=== PATIENT | female | born 1950 | race Caucasian/White ===

== ENCOUNTER 2023-11-06 15:36 | Inpatient (IN) | payer MEDICARE, SELFPAY ==
[2023-11-06] VITALS (14 sets, daily range): BP systolic 128–158; BP diastolic 60–73; PULSE 86–118; RESP 17–36; TEMP 36.2–36.9; O2SAT 95–99; BMI 28.3; BMI 30.2
--- NOTE | 2023-11-06 15:53 | DI.RAD.S_ITS ---
PROCEDURE: XR CHEST 1V INDICATIONS: suspected sepsis TECHNIQUE: One view of the chest was acquired. COMPARISON: None. FINDINGS: Surgical changes and devices: None. Lungs and pleura: Minimal left effusion. Mediastinum: Mediastinal contours appear normal. Heart size is enlarged. Bones and chest wall: No suspicious bony lesions. Overlying soft tissues appear unremarkable. IMPRESSION: Minimal left effusion. Dictated by: Merle Beltran M.D. on 11/06/2023 at 16:49 Approved by: Merle Beltran M.D. on 11/06/2023 at 16:49
[2023-11-06] MEDS: SODIUM CHLORIDE 0.9% 1,000 ML 1000 ML IV ×2 (16:00→16:42)
--- NOTE | 2023-11-06 16:09 | PC.NURSE ---
patient has been having diarrhea for a week. She has had 3-4 rounds of nausea vomiting. She tried to take immodium AD 2-3 days ago and states that it did not help. She states that she has been having chills and felt feverish but has not taken a measurement of temp at home. She states that she has lower abd tenderness from straining.
[2023-11-06 16:14] LABS: Add Manual Diff / Slide Review NO; Basophils Absolute Auto 0 /uL (0-100); Basophils Percent Auto 0.3 % (0-2); Eosinophils Absolute Auto 0 /uL (0-450); Eosinophils Percent Auto 0.5 % (2-4); Hematocrit 42.1 % (36-46); Hemoglobin 14.5 g/dL (12.0-16.0); Lymphocytes Absolute Auto 1000 /uL (1100-4500); Lymphocytes Percent Auto 11.8 % (25-40); Mean Corpuscular HGB Conc 34.5 % (30-36); Mean Corpuscular Volume 89.8 fL (80-100); Monocytes Absolute Auto 1000 /uL (0-900); Monocytes Percent Auto 12.1 % (3-14); Neutrophils Absolute Auto 6100 /uL (1500-7000); Neutrophils Percent Auto 75.3 % (50-75); Platelet Count 319 X10^3/uL (150-400); Red Blood Cell Count 4.69 X10^6/uL (4.0-5.2); Red Cell Distribution Width 13.9 % (11.6-14.8); White Blood Cell Count 8.1 X10^3/uL (4.5-11.0)
--- NOTE | 2023-11-06 16:34 | DI.CT.S_ITS ---
PROCEDURE: CT ABDOMEN PELVIS W CON INDICATIONS: nv/diarrhea/LLQ x 1 week, tachy TECHNIQUE: After the administration of intravenous contrast, axial sections acquired from the lung bases to the pubic symphysis. Coronal and sagittal reformats were performed. For radiation dose reduction, the following was used: automated exposure control, adjustment of mA and/or kV according to patient size. COMPARISON: None. FINDINGS: Image quality: Portions of the lower pelvis are suboptimally evaluated secondary to metallic streak artifact from hip arthroplasty. Lower Chest: Linear left basilar opacities likely atelectasis. ABDOMEN: Liver: No solid mass. Mild steatosis. Gallbladder: No radiopaque gallstones or wall thickening. Biliary ducts: No biliary dilation. Pancreas: No ductal dilation. Spleen: Size is within normal limits. Adrenal Glands: No adrenal nodules. Kidneys and Ureters: No hydronephrosis. No solid mass. No complex renal cystic lesion which requires follow up. Simple left renal cyst. Stomach and Bowel: No obstruction. Colonic diverticula are present within the colon particularly the left colon. There is prominent thickening of the distal descending as well as sigmoid colon with pericolonic inflammatory change. Peritoneum: No abnormal intraperitoneal fluid. No free air. Ventral Wall: No significant ventral hernia. Abdominal Nodes: No retroperitoneal or mesenteric adenopathy by size criteria. Vessels: Aorta and inferior vena cava are normal in size. PELVIS: Pelvic Organs: Unremarkable. Bladder: No bladder wall thickening, accounting for underdistention. Pelvic Nodes: No enlarged lymph nodes. Miscellaneous: No inguinal hernias are seen. Bones: No aggressive osseous abnormality. Right hip arthroplasty. IMPRESSION: Left colonic thickening with inflammatory change most consistent with colitis secondary to diverticulitis. No associated abscess. Dictated by: Merle Beltran M.D. on 11/06/2023 at 17:01 Approved by: Merle Beltran M.D. on 11/06/2023 at 17:02
[2023-11-06 16:35] LABS: INR 1.2 (0.9-1.3); Prothrombin Time 13.8 SECONDS (9.4-12.5)
[2023-11-06 16:38] LABS: PTT Partial Thromboplastin Tim 33 SECONDS (25.1-36.5)
[2023-11-06 16:39] LABS: Lactate (Lactic Acid) 2.1 mmol/L (0.7-2.1)
[2023-11-06 16:41] LABS: Alanine Aminotransferase 17 IU/L (<35); Albumin 4.1 g/dL (3.5-5.0); Albumin Globulin Ratio 1.2 (1.0-2.8); Alkaline Phosphatase 75 U/L (38-126); Aspartate Aminotransferase 20 IU/L (14-36); BUN Creatinine Ratio 14.5 (6-22); Bilirubin Total 0.8 mg/dL (0.2-1.3); Blood Urea Nitrogen 11 mg/dL (7-17); Carbon Dioxide 27 mmol/L (22-32); Chloride 95 mmol/L (98-107); Estimated Glomerular Filt Rate > 60 mL/min (>60); Globulin 3.4 g/dL (1.7-4.1); Glucose 170 mg/dL (80-110); HEMOLYSIS < 15 (0-50); Lipase 55 U/L (23-300); Sodium 131 mmol/L (137-145); Total Protein 7.5 g/dL (6.3-8.2)
--- NOTE | 2023-11-06 16:41 | ED.GENADULT ---
HPI - General Adult General Chief complaint: Weakness Stated complaint: nausea, vomiting, diarrhea x 1 week Time Seen by Provider: 11/06/23 16:00 Source: patient, family and RN notes reviewed Mode of arrival: Wheelchair Limitations: no limitations History of Present Illness HPI narrative: 73-year-old female history of dyslipidemia who presents with complaint of frequent diarrhea since last sometimes large amounts no black or blood but frequently throughout the day without any improvement over the past week. She has had some occasional nausea and vomiting. She also describes some abdominal pain. No back or flank pain. She describes some mild fevers. Denies any chest pain or shortness of breath. No syncope. She states no new dysuria urgency or frequency. She has been taking occasional oral hydration and fluids but has had a decreased appetite and had minimal intake. She denies any significant swelling in her lower extremities. She states home medications include pravastatin and Celexa. She has had multiple orthopedic surgeries including back surgery, hip replacement, knee replacement thumb replacement x2 and a dental implant that was removed for infection in the last couple of months. She has had a tubal ligation in the past. No known drug allergies. No tobacco, no regular alcohol, no recreational drugs. Patient lives in [place] and is visiting family in the area. She is accompanied by spouse. Related Data Allergies Allergy/AdvReac Type Severity Reaction Status Date / Time No Known Drug Allergies Allergy Verified 11/06/23 15:51 Review of Systems Review of Systems ROS Unobtainable: All systems reviewed & are unremarkable except as noted in HPI and below Patient History Social History Smoking Status: Never smoker Smoking Status: Never smoker Substance Use Type: does not use Exam Narrative Exam Narrative: GEN: well nourished, female, alert and oriented x 3, patient appears to be in moderate distress. HEENT: Atraumatic, pupils are equal round reactive to light, extraocular movements are intact, nares are clear, there is no conjunctival pallor. Throat is clear without any exudates, erythema, tonsillar enlargement or uvular deviation HEART: Tachycardic but regular rate and rhythm without murmur, clicks, rubs. Pulses are equal in upper and lower extremities LUNGS:Lungs clear to auscultation, no wheezes, rales, crackles, chest moves symmetrically, no tachypnea accessory muscle use. ABD:bowel sounds decreased, soft, generalized tenderness. Patient is slightly distended. No guarding, rebound, rigidity, no masses noted, no hepatosplenomegaly :No CVA tenderness MSCL: Non-tender, no muscle atrophy, muscles strength 5/5 upper and lower extremities, full range of motion. NEURO:CN 2-12 intact, sensation normal. SKIN: No rash, erythema or other skin changes noted. Initial Vital Signs Initial Vital Signs: Vital Signs Pulse Oximetry 97 11/06/23 15:43 Course Orders Ordered: ED Orders 11/06/23 15:53 XR chest 1V Stat EKG-12 Lead Stat RT Consult Eval and Treat NOW 11/06/23 16:04 Complete Blood Count AUTO DIFF Stat Comprehensive Metabolic Panel Stat Lactate (Lactic Acid) Stat Lipase Stat PTT Partial Thromboplastin Joey Stat Procalcitonin Stat Prothrombin Time INR Stat 11/06/23 16:34 CT abdomen pelvis w con Stat 11/06/23 17:32 Urine Culture Stat Urine Microscopic Stat 11/06/23 18:30 Blood Culture Stat 11/06/23 18:57 GI Panel (Film Array) Stat Ciprofloxacin (Cipro) 400 mg in 200 mls @ 200 mls/hr IV NOW ONE Stop: 11/06/23 19:48 Last Admin: 11/06/23 18:59 Dose: 200 mls/hr Documented By: LISSET Metronidazole (Flagyl) 500 mg in 100 mls @ 100 mls/hr IV NOW ONE Stop: 11/06/23 19:48 Sodium Chloride (Normal Saline 0.9%) 1,000 mls @ 150 mls/hr IV CONT YOSEPH Last Admin: 11/06/23 19:14 Dose: 150 mls/hr Documented By: LISSET Discontinued Medications Sodium Chloride (Normal Saline 0.9%) 1,000 mls @ 1,000 mls/hr IV BOLUS ONE Stop: 11/06/23 16:52 Last Infusion: 11/06/23 16:41 Dose: Infused Documented By: Admin: 11/06/23 16:00 Dose: 1,000 mls/hr Documented By: JOYCELYN Acetaminophen (Ofirmev) 1,000 mg in 100 mls @ 400 mls/hr IV NOW ONE Stop: 11/06/23 16:48 Last Infusion: 11/06/23 17:49 Dose: Infused Documented By: Admin: 11/06/23 16:54 Dose: 400 mls/hr Documented By: LISSET Sodium Chloride (Normal Saline 0.9%) 1,000 mls @ 1,000 mls/hr IV BOLUS ONE Stop: 11/06/23 17:34 Last Infusion: 11/06/23 18:20 Dose: Infused Documented By: Admin: 11/06/23 16:42 Dose: 1,000 mls/hr Documented By: JOYCELYN Ondansetron HCl (Ondansetron 4 Mg/2 Ml Inj) 4 mg IV NOW PRN PRN Reason: Nausea And Vomiting Ondansetron HCl (Ondansetron 4 Mg Odt) 4 mg SL NOW PRN PRN Reason: Nausea And Vomiting Potassium Chloride (Potassium Chloride 20 Meq Tab) 40 meq PO NOW ONE Stop: 11/06/23 17:24 Last Admin: 11/06/23 17:34 Dose: 40 meq Documented By: LISSET Vital Signs Vital signs: Vital Signs - 8 hr 11/06/23 15:43 11/06/23 15:44 11/06/23 15:44 Temperature Pulse Rate 117 H Respiratory Rate Blood Pressure 158/72 H Pulse Oximetry 97 98 Oxygen Delivery Method 11/06/23 15:46 11/06/23 16:00 11/06/23 16:09 Temperature 98.5 F Pulse Rate 118 H 114 H Respiratory Rate 25 H 22 Blood Pressure 158/72 H 157/60 H Pulse Oximetry 98 96 Oxygen Delivery Method Room Air 11/06/23 16:09 11/06/23 16:30 11/06/23 16:39 Temperature Pulse Rate 109 H 110 H Respiratory Rate 18 33 H Blood Pressure 132/62 Pulse Oximetry 98 Oxygen Delivery Method Room Air 11/06/23 16:39 11/06/23 17:16 11/06/23 17:18 Temperature Pulse Rate 109 H 104 H 104 H Respiratory Rate 25 H 26 H 22 Blood Pressure Pulse Oximetry 99 97 98 Oxygen Delivery Method 11/06/23 17:18 11/06/23 17:30 11/06/23 17:30 Temperature Pulse Rate 102 H Respiratory Rate 20 Blood Pressure 152/65 H 137/62 Pulse Oximetry 98 Oxygen Delivery Method 11/06/23 18:00 11/06/23 18:00 11/06/23 18:30 Temperature Pulse Rate 96 H 103 H Respiratory Rate 17 36 H Blood Pressure 131/60 Pulse Oximetry 96 95 Oxygen Delivery Method 11/06/23 18:31 11/06/23 18:31 Temperature Pulse Rate 105 H Respiratory Rate 32 H Blood Pressure 128/73 Pulse Oximetry 96 Oxygen Delivery Method Medical Decision Making Lab Data 11/06/23 16:04 11/06/23 16:04 Labs: Lab Results 11/06/23 11/06/23 11/06/23 Range/Units 16:04 17:32 18:30 WBC 8.1 (4.5-11.0) X10^3/uL RBC 4.69 (4.0-5.2) X10^6/uL Hgb 14.5 (12.0-16.0) g/dL Hct 42.1 (36-46) % MCV 89.8 (80-100) fL MCH 31.0 (26-34) PG MCHC 34.5 (30-36) % RDW 13.9 (11.6-14.8) % Plt Count 319 (150-400) X10^3/uL Neut % (Auto) 75.3 H (50-75) % Lymph % (Auto) 11.8 L (25-40) % Patrick % (Auto) 12.1 (3-14) % Eos % (Auto) 0.5 L (2-4) % Baso % (Auto) 0.3 (0-2) % Neut # (Auto) 6100 (9326-4006) /uL Lymph # (Auto) 1000 L (7696-0517) /uL Patrick # (Auto) 1000 H (0-900) /uL Eos # (Auto) 0 (0-450) /uL Baso # (Auto) 0 (0-100) /uL PT 13.8 H (9.4-12.5) SECONDS INR 1.2 (0.9-1.3) APTT 33 (25.1-36.5) SECONDS Sodium 131 L (137-145) mmol/L Potassium 3.0 L (3.4-5.1) mmol/L Chloride 95 L (98-107) mmol/L Carbon Dioxide 27 (22-32) mmol/L BUN 11 (7-17) mg/dL Creatinine 0.76 (0.52-1.04) mg/dL Estimated GFR > 60 (>60) mL/min BUN/Creatinine Ratio 14.5 (6-22) Glucose 170 H (80-110) mg/dL Lactate 2.1 1.2 (0.7-2.1) mmol/L Calcium 9.0 (8.4-10.2) mg/dL Total Bilirubin 0.8 (0.2-1.3) mg/dL AST 20 (14-36) IU/L ALT 17 (<35) IU/L Alkaline Phosphatase 75 (38-126) U/L Total Protein 7.5 (6.3-8.2) g/dL Albumin 4.1 (3.5-5.0) g/dL Globulin 3.4 (1.7-4.1) g/dL Albumin/Globulin Ratio 1.2 (1.0-2.8) Lipase 55 (23-300) U/L Procalcitonin 0.27 (<0.5) ng/mL Urine RBC 5-10/hpf H (0-5/HPF) Urine WBC 10-30/hpf H (0-5/HPF) Ur Squamous Epith Cells 1-5 /hpf (0-5/HPF) Ur Renal Epithelial Cell 1-5/hpf H (0-1/HPF) Urine Bacteria Moderate (10-30) H (None) Ur Culture Indicated? Specimen cultured Vol Urine Centrifuged 10ml (spun) Urine Dip Bedside Urine Glucose Negative Bedside Urine Bilirubin - Negative Bedside Urine Ketone - Negative Urine Specific [place] 1.005 Bedside Urine Occult Blood ++ Bedside Urine pH 6.0 Bedside Urine Protein - Negative Bedside Urine Urobilinogen - Negative Bedside Urine Nitrite - Negative Bedside Urine Leukocytes ++ 125 Esterase Point of care testing: Urine Dip Bedside Urine Glucose Negative Bedside Urine Bilirubin - Negative Bedside Urine Ketone - Negative Urine Specific [place] 1.005 Bedside Urine Occult Blood ++ Bedside Urine pH 6.0 Bedside Urine Protein - Negative Bedside Urine Urobilinogen - Negative Bedside Urine Nitrite - Negative Bedside Urine Leukocytes ++ 125 Esterase ECG Data Attestation: I personally reviewed and interpreted this ECG as follows: Interpretation: Sinus tachycardia frequent PVCs. Rate of 113 SC 118 QRS is a 78 [address]TC [address] No acute ST elevation depression noted. MDM Narrative Medical decision making narrative: 73-year-old female with history of dyslipidemia on pravastatin and Celexa as her only daily medications has had a week of frequent diarrhea with large amounts of fluids, nausea vomiting decreased appetite. No black or bloody stools but generalized abdominal pain she appears slightly distended bowel signs are decreased. Patient presents tachycardic afebrile room air is 97% heart rate blood pressure slightly elevated. Patient was given fluids, Zofran and Tylenol she prefers non narcotic pain medication. Labs white count 8.1 hemoglobin of 14 platelets of 319 predominance of neutrophils. INR is 1.2 sodium is 131 potassium 3 chloride 95 with a CO2 of 27 BUN 11 creatinine 0.76, glucose of 170. Lactate 2.1 calcium 9 with a negative LFTs, lipase is 55. Procalcitonin 0.27. Urine, positive for blood specific gravity is 1.005, negative for nitrates positive for leukocyte esterase. Patient has 5-10 RBCs 10-30 WBCs 1-5 squamous 1-5 renal epithelial cells, moderate bacteria was sent for culture. Patient also has blood cultures pending. EKG shows sinus tach but frequent PVCs Chest x-ray shows minimal left occlusion. CT abdomen pelvis-left colonic wall thickening with inflammatory change most consistent with colitis secondary to diverticulitis. No associated abscess. Patient's heart rate has improved but not resolved after 2 L of fluid she is still slightly tachy cardiac, no hypotension she is still slightly tachypneic. Reviewed patient's findings she is continued to have some stool output and has very brown liquidy stool in large amount here in the department. Patient was started on Flagyl and Cipro for diverticulitis after potential source. Antibiotic choice was delayed while evaluating for source of She did tolerate oral potassium but concerned about patient's likely fluid deficits difficulty keeping up with these with recurrent diarrhea, electrolyte abnormalities, sepsis and would like to keep for observation. GI panel is pending. Spoke with Dr. Siddiqi, hospitalist: Accepts at this time we will be inpatient for IV antibiotics and fluids. Discharge Plan Departure Patient Disposition: Admitted As Inpatient Clinical Impression: Diverticulitis, Renal cyst, Hypokalemia, Hyponatremia, Sepsis Admit Date/Time: 11/06/23 19:17 Admit Provider: German King
[2023-11-06] MEDS: ACETAMINOPHEN IV 1,000 MG/100 ML VIAL 400 MG IV (16:54)
[2023-11-06 16:57] LABS: Procalcitonin 0.27 ng/mL (<0.5)
[2023-11-06] MEDS: POTASSIUM CHLORIDE 20 MEQ TAB 40 MEQ PO (17:34)
[2023-11-06 17:46] LABS: Reflexed Lactate in 2 Hours Y
[2023-11-06 18:36] LABS: Urine Volume 10mL (spun)
[2023-11-06 18:37] LABS: Bacteria Urine Moderate (10-30); Culture Indicated Urine Specimen Cultured; RBC Urine 5-10/HPF (0-5/HPF); Renal Epithelial Cells Urine 1-5/HPF (0-1/HPF); Squamous Epithelial Cell Urine 1-5 /HPF (0-5/HPF); WBC Urine 10-30/HPF (0-5/HPF)
[2023-11-06 18:53] LABS: Lactate 2HR (Lactic Acid Rflx) 1.2 mmol/L (0.7-2.1)
[2023-11-06] MEDS: CIPROFLOXACIN 400 MG/200 ML PIGGYBACK 200 MG IV (18:59)
[2023-11-06] MEDS: SODIUM CHLORIDE 0.9% 1,000 ML 150 ML IV (19:14)
--- NOTE | 2023-11-06 19:34 | P.HP_ITS ---
History of Present Illness History of Present Illness Date Patient Seen: 11/06/23 Time Patient Seen: 21:00 Chief complaint: nausea, vomiting, diarrhea x 1 week Narrative: 73 y/o with PMH of HLD, depression, degenerative disease of lumbar spine, presented with diarrhea, fever, nausea, vomiting. Symptoms started a week ago and worsened on a day of admission. She recently finished a course of abx for dental infection and was having a yogurt daily. CT abdomen in the ED showing diverticulosis of entire descending colon in addition to colitis. She is aware of diverticulosis since her recent colonoscopy. Diagnosed with C difficile colitis. [facility] Medical History (Updated 11/07/23 @ 06:20 by German Siddiqi MD) Depression HLD (hyperlipidemia) Social History household members: spouse Smoking Status: Never smoker alcohol intake: never Meds Home Medications and Allergies Home Medications Medication Instructions Recorded Confirmed Type citalopram 20 mg tablet 20 mg PO BEDTIME 11/06/23 11/06/23 History pravastatin 40 mg tablet 40 mg PO BEDTIME 11/06/23 11/06/23 History Allergies Allergy/AdvReac Type Severity Reaction Status Date / Time No Known Drug Allergies Allergy Verified 11/06/23 15:51 Review of Systems Constitutional Comments: generalized weakness, fever Cardiovascular Comments: w/o chest pain Respiratory Comments: w/o shortness of breath Gastrointestinal Comments: decreased PO intake, nausea, few episodes of vomiting, numerous liquid stools Genitourinary Comments: w/o dysuria Exam Vital Signs (past 8 hours): - 11/06/23 15:43 11/06/23 15:44 11/06/23 15:44 Temperature Pulse Rate 117 H Respiratory Rate Blood Pressure 158/72 H Pulse Oximetry 97 98 Oxygen Delivery Method 11/06/23 15:46 11/06/23 16:00 11/06/23 16:09 Temperature 98.5 F Pulse Rate 118 H 114 H Respiratory Rate 25 H 22 Blood Pressure 158/72 H 157/60 H Pulse Oximetry 98 96 Oxygen Delivery Method Room Air 11/06/23 16:09 11/06/23 16:30 11/06/23 16:39 Temperature Pulse Rate 109 H 110 H Respiratory Rate 18 33 H Blood Pressure 132/62 Pulse Oximetry 98 Oxygen Delivery Method Room Air 11/06/23 16:39 11/06/23 17:16 11/06/23 17:18 Temperature Pulse Rate 109 H 104 H 104 H Respiratory Rate 25 H 26 H 22 Blood Pressure Pulse Oximetry 99 97 98 Oxygen Delivery Method 11/06/23 17:18 11/06/23 17:30 11/06/23 17:30 Temperature Pulse Rate 102 H Respiratory Rate 20 Blood Pressure 152/65 H 137/62 Pulse Oximetry 98 Oxygen Delivery Method 11/06/23 18:00 11/06/23 18:00 11/06/23 18:30 Temperature Pulse Rate 96 H 103 H Respiratory Rate 17 36 H Blood Pressure 131/60 Pulse Oximetry 96 95 Oxygen Delivery Method 11/06/23 18:31 11/06/23 18:31 Temperature Pulse Rate 105 H Respiratory Rate 32 H Blood Pressure 128/73 Pulse Oximetry 96 Oxygen Delivery Method Oxygen Delivery Method Room Air Const Other: in no distress, laying in bed Resp Other: normal respiratory effort Cardio Other: RRR Skin Other: w/o rashes Psych Other: lucid Objective Labs 11/07/23 04:30 11/07/23 04:30 Labs: Laboratory Results - last 24 hr 11/06/23 11/06/23 11/06/23 16:04 17:32 18:30 WBC 8.1 RBC 4.69 Hgb 14.5 Hct 42.1 MCV 89.8 MCH 31.0 MCHC 34.5 RDW 13.9 Plt Count 319 Neut % (Auto) 75.3 H Lymph % (Auto) 11.8 L [place] % (Auto) 12.1 Eos % (Auto) 0.5 L Baso % (Auto) 0.3 Neut # (Auto) 6100 Lymph # (Auto) 1000 L [place] # (Auto) 1000 H Eos # (Auto) 0 Baso # (Auto) 0 PT 13.8 H INR 1.2 APTT 33 Sodium 131 L Potassium 3.0 L Chloride 95 L Carbon Dioxide 27 BUN 11 Creatinine 0.76 Estimated GFR > 60 BUN/Creatinine Ratio 14.5 Glucose 170 H Lactate 2.1 1.2 Calcium 9.0 Total Bilirubin 0.8 AST 20 ALT 17 Alkaline Phosphatase 75 Total Protein 7.5 Albumin 4.1 Globulin 3.4 Albumin/Globulin Ratio 1.2 Lipase 55 Procalcitonin 0.27 Urine RBC 5-10/hpf H Urine WBC 10-30/hpf H Ur Squamous Epith Cells 1-5 /hpf Ur Renal Epithelial Cell 1-5/hpf H Urine Bacteria Moderate (10-30) H Ur Culture Indicated? Specimen cultured Vol Urine Centrifuged 10ml (spun) Assessment & Plan Assessment and plan (1) C. difficile colitis: Status: Acute (2) HLD (hyperlipidemia): Status: Acute (3) Depression: Status: Acute Assessment & Plan narrative: Clostridium Difficile Colitis - recent use of abx - Vancomycin PO, can tolerate PO, clear liquid diet - IVFs Hypokalemia / Hyponatremia - supplemented - GI loses, monitored BMP HLD - statin Depression - Celexa DVT prophylaxis - SCDs
[2023-11-06] MEDS: metroNIDAZOLE 500 MG/100 ML PIGGYBACK 100 MG IV (20:11)
[2023-11-06 20:19] LABS: Adenovirus F 40/41 Not Detected (Not Detect); Astrovirus Not Detected (Not Detect); Campylobacter Not Detected (Not Detect); Clostridium difficile toxin AB Detected (Not Detect); Cryptosporidium Not Detected (Not Detect); Cyclospora cayetanensis Not Detected (Not Detect); Entamoeba histolytica Not Detected (Not Detect); Enteroaggregative E.coli Not Detected (Not Detect); Enteropathogenic E.coli Not Detected (Not Detect); Enterotoxigenic E.coli It/st Not Detected (Not Detect); Giardia lamblia Not Detected (Not Detect); Norovirus GI/GII Not Detected (Not Detect); Plesiomonsa shigelloides Not Detected (Not Detect); Rotavirus A Not Detected (Not Detect); Salmonella Not Detected (Not Detect); Sapovirus Not Detected (Not Detect); Shiga-like toxin-prod E.coli Not Detected (Not Detect); Shigella/Enteroinvasive E.coli Not Detected (Not Detect); Vibrio Not Detected (Not Detect); Vibrio cholerae Not Detected (Not Detect); Yersinia enterocolitica Not Detected (Not Detect)
[2023-11-06] MEDS: DEXTROSE 5%-0.45NS W/KCL 20MEQ 1,000 ML 125 MEQ IV (21:00)
[2023-11-06] MEDS: VANCOMYCIN 125 MG CAPSULE PO (21:54)
[2023-11-07] VITALS: BP 147/75; PULSE 95; RESP 17; TEMP 36.5; O2SAT 97
[2023-11-07] MEDS: HYDROMORPHONE 0.5 MG INJ IV ×4 (00:36→18:51)
--- NOTE | 2023-11-07 01:46 | PC.ADMIT ---
[address] Admission Note: Patient admitted to AC unit from ED @ 20:45, spouse present. Alert and oriented x 4, pleasant. Ambulating with SBA, FWW. Placed on Enteric precautions for C-diff. Reports lower abdominal cramping. D5 1/2 NS running at 125/hr. Oriented to room and call light, bed in low, locked position and call light in reach. The patient,Shoshana Tariq,73 y/o, was given written information regarding hospital policies, unit procedures and contact persons. Patient's smoking status: Never smoker. Vital Signs - 8 hr 11/06/23 18:00 11/06/23 18:00 11/06/23 18:30 Temperature Pulse Rate 96 H 103 H Respiratory Rate 17 36 H Blood Pressure 131/60 Pulse Oximetry 96 95 Oxygen Delivery Method Oxygen Flow Rate 11/06/23 18:31 11/06/23 18:31 11/06/23 19:41 Temperature Pulse Rate 105 H Respiratory Rate 32 H Blood Pressure 128/73 Pulse Oximetry 96 Oxygen Delivery Method Room Air Oxygen Flow Rate 11/06/23 20:45 11/07/23 00:00 Temperature 97.1 F L 97.7 F Pulse Rate 86 95 H Respiratory Rate 18 17 Blood Pressure 150/60 H 147/75 H Pulse Oximetry 97 97 Oxygen Delivery Method Oxygen Flow Rate 0 0
[2023-11-07] MEDS: VANCOMYCIN 125 MG CAPSULE PO ×4 (03:45→20:55)
[2023-11-07 04:00] VITALS: BP 128/48; PULSE 98; RESP 18; TEMP 36.4; O2SAT 98
[2023-11-07 05:20] LABS: Add Manual Diff / Slide Review NO; Basophils Absolute Auto 0 /uL (0-100); Basophils Percent Auto 0.3 % (0-2); Eosinophils Absolute Auto 100 /uL (0-450); Eosinophils Percent Auto 1.5 % (2-4); Hematocrit 38.5 % (36-46); Lymphocytes Absolute Auto 1000 /uL (1100-4500); Lymphocytes Percent Auto 13.7 % (25-40); Mean Corpuscular HGB Conc 33.8 % (30-36); Mean Corpuscular Hemoglobin 30.7 PG (26-34); Mean Corpuscular Volume 90.9 fL (80-100); Monocytes Absolute Auto 1100 /uL (0-900); Neutrophils Absolute Auto 5200 /uL (1500-7000); Neutrophils Percent Auto 69.5 % (50-75); Platelet Count 244 X10^3/uL (150-400); Red Blood Cell Count 4.24 X10^6/uL (4.0-5.2); White Blood Cell Count 7.4 X10^3/uL (4.5-11.0)
[2023-11-07 05:30] LABS: BUN Creatinine Ratio 10.9 (6-22); Blood Urea Nitrogen 6 mg/dL (7-17); Calcium 8.1 mg/dL (8.4-10.2); Carbon Dioxide 23 mmol/L (22-32); Chloride 105 mmol/L (98-107); Estimated Glomerular Filt Rate > 60 mL/min (>60); Glucose 107 mg/dL (80-110); HEMOLYSIS < 15 (0-50); Magnesium 2.2 mg/dL (1.6-2.3); Sodium 136 mmol/L (137-145)
[2023-11-07] MEDS: DEXTROSE 5%-0.45NS W/KCL 20MEQ 1,000 ML 125 MEQ IV ×3 (05:37→23:52)
[2023-11-07 08:00] VITALS: BP 149/67; PULSE 102; RESP 16; TEMP 36.5; O2SAT 99
[2023-11-07 08:37] LABS: Uric Acid 4.5 mg/dL (2.5-6.2)
[2023-11-07] MEDS: IBUPROFEN 400 MG TABLET 800 MG PO (09:28)
[2023-11-07 12:00] VITALS: BP 124/56; PULSE 99; RESP 16; TEMP 36.1; O2SAT 98
--- NOTE | 2023-11-07 13:09 | CM.DANOTE ---
Patient is a 73 yo female who was admitted INPT status on 11/06/23 for Diarrhea. Pt has [facility] and [facility] for insurance and her PCP is out of town. EMR was reviewed. Per MD, pt admitted with diverticulosis and CDiff+ and getting fluids and IV-Abx and likely not stable for discharge yet today. SW met bedside with pt and explained role and she confirms that her permanent home is in [place] where her PCP resides as well and they have been staying in [place] for a few months at a time at their local son's house as he has a mother inlaw apartment attached to their home so that pt and her spouse can assist with the grandkids. Pt is quite active and independent at baseline, does not use DME for ambulation, and still drives and cares for the grandkids and denies any hx of HH or SNF. Pt states her spouse is also active and independent and can assist as needed and their son is a local Physician. Pt confirms she is below baseline due to fatigue and arthritis flare from the CDiff but has ambulated with FWW in room independently and anticipates no discharge needs when stable. SW discussed HH services and frequency and pt does not anticipate a need for HH closer to discharge. Plan: SW to follow closely for plan of discharge home with family when medically stable and any further identified discharge planning needs. LILI Le Discharge Planning/Care Management CM Discharge Assessment Start: 11/07/23 13:03 Freq: Status: Active Protocol: Document 11/07/23 13:03 BF (Rec: 11/07/23 13:09 BF [id number]) Discharge Planning Assessment Assigned Delivery Associate LILI Adams DPOA/Assigned Designee Name jos Byers Contact Information [phone] Advance Directives? No Advance Directives on File No History Provided By Patient,Medical Record Has Patient been admitted in last 30 No days? Prior Living Arrangements House Household Members spouse,family Type of transporation used prior to Drives own vehicle admit Independent with ADL's Yes Is patient alert and oriented? Yes Caregiver for Another Yes: helping with childcare for grandchildren Barriers to Discharge No Discharge Plan Home Transportation Arrangement Likely spouse but son available too Referrals Initiated None needed Whiteboard Updated in Patient Room with Yes name and ext. # of Delivery Associate Review Status In Process Please Provide Date Initial DC 11/07/23 Assessment Was Performed Next Review Type Continued Stay Review
--- NOTE | 2023-11-07 13:28 | DIET.CONS ---
Dietary Consultation Note Admission Date: 11/06/2023 19:17 Assessment: 73 y F admitted for C difficile colitis. Nutrition screened for pt on low fiber diet. Met with pt at bedside. Pt reports taking antibiotic and having Activia yogurts with it for promotion of gut health. Also reports as a result of colonoscopy results showing diverticulosis, she had been increasing fiber in diet. Cooks for herself. Reports feeling mild weight loss, associated with water loss from diarrhea and decreased po intake with minimal intake over last week d/t to nausea, vomiting, and diarrhea. Normal appetite/intake before this past week. Ht: 157.48 cm Wt: 75 kg BMI: 30.2 UBW: 72.7-75 kg per pt report, no weight loss noted Last BM: 11/07/23 (11/07/23 06:00) MNA: 14 Bill Score: 20 Diet: 11/07/23 Breakfast Soft,Low Fiber (Low residue) Diet Diet Modifications: Food Texture: Level 7 - Regular Liquid Consistency: Level 0 - Thin Nutrition Percent Meal Consumed 25% 11/07/23 12:00 Percent Meal Consumed 50% 11/07/23 11:00 Labs: RBC 4.24 X10^6/uL (4.0-5.2) 11/07/23 04:30 Hgb 13.0 g/dL (12.0-16.0) 11/07/23 04:30 Hct 38.5 % (36-46) 11/07/23 04:30 Creatinine 0.55 mg/dL (0.52-1.04) 11/07/23 04:30 Lactate 1.2 mmol/L (0.7-2.1) 11/06/23 18:30 Nutrition Diagnosis: Inadequate oral intake r/t to decreased appetite in setting of GI distress aeb <75% of EER for 7 days Interventions: 1. MNT for diverticulosis and current diet order/symptoms provided - when having no s/s, slow reintroduction of fiber into diet 2. Protein supplementation 1x/day EER: [id number] kcals (20-22 kcals per BMI, compared w/ MSJ at 1.25) 65-75 g protein (1-1.1 g/kg of adjusted IBW) Monitoring/Evaluations: po intakes Electronically Signed by: Josi Hernandez 11/07/23 13:[address] [id number]
--- NOTE | 2023-11-07 14:04 | DI.RAD.S_ITS ---
PROCEDURE: XR FOOT LT MIN 3V INDICATIONS: pain to foot, can't weightbear TECHNIQUE: 3 views of the foot were acquired. COMPARISON: None. FINDINGS: Bones: No fractures or dislocations. Note is made of moderate osteoarthritis at the 1st MTP joint and also at the base of the 2nd and 3rd metatarsal bones No suspicious bony lesions. Soft tissues: No tibiotalar joint effusion. Achilles tendon appears normal. IMPRESSION: No acute bony abnormality. Degenerative osteoarthritis as discussed. Dictated by: Remigio Morgan M.D. on 11/07/2023 at 14:38 Approved by: Remigio Morgan M.D. on 11/07/2023 at 14:39
[2023-11-07 16:00] VITALS: BP 134/67; PULSE 98; RESP 16; TEMP 36.2; O2SAT 99
--- NOTE | 2023-11-07 18:20 | P.PN_ITS ---
Subjective Subjective Interval history: Patient's diarrhea much improved today including abd pain. Had only 2 watery BM's. I explained she likely doesn't have diverticulitis, but instead C. diff colitis which gave that appearance on CT. at bedside and questions were answered. Exam Vital Signs (past 8 hours): - 11/07/23 12:00 11/07/23 16:00 Temperature 97.0 F L 97.1 F L Pulse Rate 99 H 98 H Respiratory Rate 16 16 Blood Pressure 124/56 L 134/67 Pulse Oximetry 98 99 Oxygen Delivery Method Room Air Oxygen Flow Rate 0 Const Other: in no distress, laying in bed Resp Other: normal respiratory effort Cardio Other: RRR GI Other: mild lower quadrant tenderness, much improved Skin Other: w/o rashes Psych Other: lucid Objective Labs 11/07/23 04:30 11/07/23 04:30 Labs: Laboratory Results - last 24 hr 11/06/23 11/06/23 11/06/23 17:32 18:30 18:57 WBC RBC Hgb Hct MCV MCH MCHC RDW Plt Count Neut % (Auto) Lymph % (Auto) [place] % (Auto) Eos % (Auto) Baso % (Auto) Neut # (Auto) Lymph # (Auto) [place] # (Auto) Eos # (Auto) Baso # (Auto) Sodium Potassium Chloride Carbon Dioxide BUN Creatinine Estimated GFR BUN/Creatinine Ratio Glucose Lactate 1.2 Uric Acid Calcium Magnesium Urine RBC 5-10/hpf H Urine WBC 10-30/hpf H Ur Squamous Epith Cells 1-5 /hpf Ur Renal Epithelial Cell 1-5/hpf H Urine Bacteria Moderate (10-30) H Ur Culture Indicated? Specimen cultured Vol Urine Centrifuged 10ml (spun) Stl C. cayetanensis PCR Not detected Stool Rotavirus (PCR) Not detected Stool Adenovirus (PCR) Not detected Stool Astrovirus (PCR) Not detected Stool Cryptosporidium PCR Not detected Stl E.coli Shiga Tox PCR Not detected St Sh/Enteroin Ecoli PCR Not detected Stl Enterotoxigenic E PCR Not detected Stool EPEC (PCR) Not detected Stl E. histolytica PCR Not detected Stool Giardia Lamblia PCR Not detected Stool Sapovirus (PCR) Not detected Stl P. shigelloides PCR Not detected St Y.enterocolitica PCR Not detected Stool Vibrio (PCR) Not detected Stl Vibrio cholerae PCR Not detected Stl Enteroaggr Ecoli PCR Not detected Stl Norovirus GI/GII PCR Not detected Campylobacter (PCR) Not detected C. difficile Tox (PCR) Detected H Salmonella (PCR) Not detected 11/07/23 04:30 WBC 7.4 RBC 4.24 Hgb 13.0 Hct 38.5 MCV 90.9 MCH 30.7 MCHC 33.8 RDW 14.0 Plt Count 244 Neut % (Auto) 69.5 Lymph % (Auto) 13.7 L [place] % (Auto) 15.0 H Eos % (Auto) 1.5 L Baso % (Auto) 0.3 Neut # (Auto) 5200 Lymph # (Auto) 1000 L [place] # (Auto) 1100 H Eos # (Auto) 100 Baso # (Auto) 0 Sodium 136 L Potassium 4.0 Chloride 105 Carbon Dioxide 23 BUN 6 L Creatinine 0.55 Estimated GFR > 60 BUN/Creatinine Ratio 10.9 Glucose 107 Lactate Uric Acid 4.5 Calcium 8.1 L Magnesium 2.2 Urine RBC Urine WBC Ur Squamous Epith Cells Ur Renal Epithelial Cell Urine Bacteria Ur Culture Indicated? Vol Urine Centrifuged Stl C. cayetanensis PCR Stool Rotavirus (PCR) Stool Adenovirus (PCR) Stool Astrovirus (PCR) Stool Cryptosporidium PCR Stl E.coli Shiga Tox PCR St Sh/Enteroin Ecoli PCR Stl Enterotoxigenic E PCR Stool EPEC (PCR) Stl E. histolytica PCR Stool Giardia Lamblia PCR Stool Sapovirus (PCR) Stl P. shigelloides PCR St Y.enterocolitica PCR Stool Vibrio (PCR) Stl Vibrio cholerae PCR Stl Enteroaggr Ecoli PCR Stl Norovirus GI/GII PCR Campylobacter (PCR) C. difficile Tox (PCR) Salmonella (PCR) PFSH Medical History (Updated 11/07/23 @ 06:20 by German Siddiqi MD) Depression HLD (hyperlipidemia) Social History household members: spouse and family Smoking Status: Never smoker alcohol intake: never Assessment & Plan Assessment & Plan narrative: Clostridium Difficile Colitis - recent use of clindamycin for dental work, then developed 40 watery BM's per day - Vancomycin PO - diarrhea now improving - IVFs Hypokalemia / Hyponatremia, improving - supplemented - GI loses, monitored BMP HLD - statin Depression - Celexa Left forefoot pain - no history of gout, uric acid normal - XR shows OA of 1-3 MT joints - ibuprofen PRN DVT prophylaxis - SCDs Dispo: Home likely on 11/07.
[2023-11-07 20:10] VITALS: BP 136/72; PULSE 95; RESP 18; TEMP 36.6; O2SAT 96
[2023-11-07] MEDS: PRAVASTATIN 20 MG TABLET 40 MG PO (20:55)
[2023-11-07] MEDS: CITALOPRAM 10 MG TABLET 20 MG PO (20:55)
[2023-11-08 00:07] VITALS: BP 140/66; PULSE 101; RESP 16; TEMP 36.1; O2SAT 98
[2023-11-08] MEDS: VANCOMYCIN 125 MG CAPSULE PO ×4 (02:43→20:40)
[2023-11-08] MEDS: HYDROMORPHONE 0.5 MG INJ IV ×2 (02:43→09:14)
[2023-11-08 05:10] VITALS: BP 150/76; PULSE 97; RESP 17; TEMP 36.1; O2SAT 99
[2023-11-08 08:00] VITALS: BP 170/93; PULSE 100; RESP 18; TEMP 36.4; O2SAT 99
[2023-11-08] MEDS: DEXTROSE 5%-0.45NS W/KCL 20MEQ 1,000 ML 125 MEQ IV ×2 (09:15→17:14)
[2023-11-08 12:00] VITALS: BP 153/64; PULSE 106; RESP 16; TEMP 36.4; O2SAT 97
[2023-11-08] MEDS: IBUPROFEN 400 MG TABLET 800 MG PO ×2 (14:22→22:49)
--- NOTE | 2023-11-08 14:54 | PC.NURSE ---
pt reports pain mostly arthritic pain which has worsened with c. diff infection. Dilaudid IV given this morning and Ibuprofen this afternoon. Pt ambulates to BR 1p assist. BM loose. Pt does reports low cramps when using bathroom. IVF infusing. at bedside.
[2023-11-08 16:00] VITALS: BP 132/58; PULSE 105; RESP 14; TEMP 36.4; O2SAT 96
--- NOTE | 2023-11-08 16:39 | P.PN_ITS ---
Subjective Subjective Interval history: Had 15 episodes of diarrhea yesterday. Stool becoming more formed. Has had 3 this morning. Exam Vital Signs (past 8 hours): - 11/08/23 12:00 11/08/23 16:00 Temperature 97.6 F 97.6 F Pulse Rate 106 H 105 H Respiratory Rate 16 14 Blood Pressure 153/64 H 132/58 L Pulse Oximetry 97 96 Oxygen Flow Rate 0 0 Oxygen Delivery Method Room Air Oxygen Flow Rate 0 Const Other: in no distress, laying in bed Resp Other: normal respiratory effort Cardio Other: RRR GI Other: mild lower quadrant tenderness, now much improved Skin Other: w/o rashes Extrem Other: L dorsal midfoot with pain to palpation, no swelling or redness Psych Other: lucid Objective Labs 11/07/23 04:30 11/07/23 04:30 [facility] Medical History (Updated 11/07/23 @ 06:20 by German Siddiqi MD) Depression HLD (hyperlipidemia) Social History household members: spouse and family Smoking Status: Never smoker alcohol intake: never Assessment & Plan Assessment & Plan narrative: Clostridium Difficile Colitis, improving - recent use of clindamycin for dental work, then developed 40 watery BM's per day - Vancomycin PO - diarrhea now improving, down to 15 BM's on 11/06, becoming more formed - IVFs - enteric isolation Hypokalemia / Hyponatremia, improving - supplemented - GI loses, monitored BMP HLD - statin Depression - Celexa Left dorsal foot pain - no history of gout, uric acid normal - XR shows OA of 1-3 MT joints - ibuprofen PRN DVT prophylaxis - SCDs Dispo: Home in 1-2 days pending improvement in diarrhea.
[2023-11-08 20:00] VITALS: BP 151/70; PULSE 100; RESP 17; TEMP 36.2; O2SAT 98
[2023-11-08] MEDS: PRAVASTATIN 20 MG TABLET 40 MG PO (20:40)
[2023-11-08] MEDS: CITALOPRAM 10 MG TABLET 20 MG PO (20:40)
[2023-11-09] VITALS: BP 140/76; PULSE 74; RESP 16; TEMP 37; O2SAT 96
--- NOTE | 2023-11-09 01:07 | PC.NURSE ---
Addendum entered by Gale Julian R.N. 11/09/23 06:59: Patient had a few soft BMs overnight, states that she feels she is improving. Resting in chair currently. 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 Complaints of joint pain, medicated with ibuprofen as ordered. SBA w/ FWW to bathroom, ambulating well. Patient no longer having BM's, however is peeing frequently and is unable to sleep d/t having to get OOB almost every hour. Patient requested to stop or slow down IVF, stated she was tolerating PO intake and denies N/V. IVF d/c'd per MD Siddiqi. Family at bedside. Oriented to call-light. Plan of care ongoing.
[2023-11-09 04:00] VITALS: BP 163/73; PULSE 94; RESP 17; TEMP 35.7; O2SAT 96
[2023-11-09] MEDS: VANCOMYCIN 125 MG CAPSULE PO ×2 (04:02→09:13)
[2023-11-09 05:40] VITALS: BP 138/70
[2023-11-09 08:00] VITALS: BP 147/82; PULSE 106; RESP 16; TEMP 37.3; O2SAT 97
[2023-11-09] MEDS: IBUPROFEN 400 MG TABLET 800 MG PO (09:04)
--- NOTE | 2023-11-09 10:09 | P.DS_ITS ---
History of Present Illness History of Present Illness Date Patient Seen: 11/09/23 Time Patient Seen: 08:10 Chief complaint: nausea, vomiting, diarrhea x 1 week Narrative: Chief complaint: nausea, vomiting, diarrhea x 1 week Narrative: 73 y/o with PMH of HLD, depression, degenerative disease of lumbar spine, presented with diarrhea, fever, nausea, vomiting. Symptoms started a week ago and worsened on a day of admission. She recently finished a course of abx for dental infection and was having a yogurt daily. CT abdomen in the ED showing diverticulosis of entire descending colon in addition to colitis. She is aware of diverticulosis since her recent colonoscopy. Diagnosed with C difficile colitis. Discharge Providers Provider Date of admission: 11/06/23 19:17 Discharge Date: 11/09/23 Discharge provider: Juliocesar Reyes MD Summary Hospital Course Discharge Diagnosis: 1. Clostridium difficile colitis 2. Hypokalemia 3. Hyperlipidemia 4. Depression 5. Osteoarthritis flare due to 1. Hospital Course: The patient was admitted for IV fluid support, pain control and treatment of Clostridium difficile colitis with oral vancomycin. She improved significantly over the 1st 48 hours, was able to advance diet and stooling diminished to 1 well-formed stool on the day of discharge. She was feeling significantly better now interested in discharge home. Hypokalemia was repleted. She had diffuse flare of osteoarthritis that was significantly improved at discharge. No other issues arose. Status at Discharge Cognitive/behavioral status at discharge: oriented Functional status at discharge: independent ambulation Overall status at discharge: patient is back to baseline Time Spent with Patient Time spent: Less than 30 minutes Exam Vital Signs (past 8 hours): - 11/09/23 04:00 11/09/23 05:40 11/09/23 08:00 Temperature 96.3 F L 99.1 F Pulse Rate 94 H 106 H Respiratory Rate 17 16 Blood Pressure 163/73 H 138/70 147/82 H Pulse Oximetry 96 97 Oxygen Flow Rate 0 0 Oxygen Delivery Method Room Air Oxygen Flow Rate 0 Narrative Exam Narrative: GENERAL: This is a well-nourished, well-developed patient, in no apparent distress. HEAD: Atraumatic. Normocephalic. No temporal or scalp tenderness. EYES: Pupils equal round and reactive. Extraocular motions intact. No scleral icterus. No injection or drainage. ENT: Mucous membranes pink and moist. NECK: Trachea midline. No JVD, bruits or lymphadenopathy. Supple, nontender, no meningeal signs. CARDIOVASCULAR: Regular rate and rhythm without murmurs, gallops, or rubs. RESPIRATORY: Clear to auscultation. GASTROINTESTINAL: Abdomen soft, non-tender, nondistended. EXTREMITIES: No clubbing, cyanosis, or edema. BACK: Nontender without deformity or crepitance. No flank tenderness. NEUROLOGIC: Alert, oriented, speech fluent, full upper and lower motor strength, no focal deficits evident. DERMATOLOGIC: No rashes or skin lesions. Objective Labs 11/07/23 04:30 11/07/23 04:30 [facility] Medical History Depression HLD (hyperlipidemia) Social History household members: spouse and family Smoking Status: Never smoker alcohol intake: never Discharge Plan Discharge Plan Patient Disposition: Home Discharge orders & Medications Prescriptions: New vancomycin 125 mg Capsule 125 mg PO Q6H Qty: 40 0RF Continued pravastatin 40 mg tablet 40 mg PO BEDTIME citalopram 20 mg tablet 20 mg PO BEDTIME Visit Report/Discharge Packet Stand Alone Forms: Patient Portal/API Quality MIPS - Admit I confirm the patient?s Advance Care Plan is present, Code status is documented, Surrogate decision maker is in patient?s record [If Yes, STOP here]: Yes [facility] - Meds 'Current medications' to include all prescriptions, [id number] products, herbals, cannabis/cannabidiol products, and vitamin/mineral/dietary (nutritional) supplements. I have utilized all available resources to obtain, update, or review the patient?s current medications. [If Yes, STOP here]: Yes MIPS - DC The patient has a history of heart transplant or Left Ventricular Assist Device (LVAD). If yes, STOP here.: No The patient has current or prior documentation of left ventricular ejection fraction (LVEF) less than or equal to 40%, or moderate or severely depressed left ventricular systolic function.: No A. The patient was prescribed or already taking an Angiotensin-Converting Enzyme (LULU) Inhibitor, or Angiotensin Receptor Natacha (ARB).: No B. The patient was prescribed or already taking a beta-natacha. [If Yes to Both A & B, STOP here]: No Patient not prescribed/taking LULU or ARB, no reason given.: No Patient not prescribed/taking beta-natacha, no reason given.: No PROFEE Charge Codes Discharge inpatient/observation: 94908
--- NOTE | 2023-11-09 10:40 | CM.DPNOTE ---
DCP Note [employer] reviewed EMR Per hospitalist in morning multidisciplinary rounds, pt cleared to dc home with family today. [employer] entered room and introduced self and role. Pt resting in chair. pt denies CM/DCP needs, spouse on way to pick her up. Gave copy of IMM at approx 1030, pt waived right to dc. Plan: dc home with family today. No CM needs. CM team will follow as needed. Caitlin Terrell, LILI
--- NOTE | 2023-11-09 11:27 | PC.NURSE ---
Day shift: Paperwork signed and all questions answered. Left unit via WC at approx 1115. Pt has all personal belongings. scripts sent electronic to Pt's pharmacy. Pt's Spouse is driving her home. Pt stated I'm very glad to be going home today.
--- NOTE | 2023-11-09 11:35 | PC.NURSE ---
Day shift: Paperwork signed and all questions answered. Encouraged Pt to get a PCP. Left unit at approx 1140. He wanted to ambulate to car and has been steady on feet. PCT Braulio helped him get to car. Pt's S.O. is driving him home. No new MD scripts. Pt has all personal belongings.
[2023-11-11 14:09] LABS: C difficie Toxins A and B, EIA Positive (Negative)
== END 2023-11-09 11:29 | disposition home or self-care (01) | DRG 372 ==
LOC: ED 19:16 → AC 19:19
PROVIDERS: Student in an Organized Health Care Education/Training Program; Admitting Provider Internal Medicine; Emergency Provider Emergency Medicine; Referring Provider Emergency Medicine; Visit Provider Internal Medicine
DX: A04.72 Enterocolitis due to Clostridium difficile, not specified as recurrent (principal); E87.1 Hypo-osmolality and hyponatremia; E78.5 Hyperlipidemia, unspecified; F32.A Depression, unspecified; E87.6 Hypokalemia; M19.072 Primary osteoarthritis, left ankle and foot
CPT/HCPCS: 36415; 71045; 73630; 74177; 80048; 80053; 81003; 81015; 83605; 83690; 83735; 84145; 84550; 85025; 85610; 85730; 87040; 87077; 87086; 87186; 87324; 87507; 93005; 93010; 96365; 96367; 99284; 99285; J0136; J0744; J1170

== ENCOUNTER 2023-12-01 20:37 | Emergency (ER) | payer MEDICARE, SELFPAY ==
[2023-11-06 19:41] VITALS: BMI 30.2
[2023-12-01] VITALS (10 sets, daily range): BP systolic 116–142; BP diastolic 60–75; PULSE 96–120; RESP 12–24; TEMP 36.4; O2SAT 92–96; BMI 29.2
[2023-12-01 21:03] LABS: Add Manual Diff / Slide Review NO; Basophils Absolute Auto 100 /uL (0-100); Basophils Percent Auto 0.7 % (0-2); Eosinophils Absolute Auto 0 /uL (0-450); Eosinophils Percent Auto 0.3 % (2-4); Hematocrit 36.6 % (36-46); Hemoglobin 12.4 g/dL (12.0-16.0); Lymphocytes Absolute Auto 1600 /uL (1100-4500); Lymphocytes Percent Auto 12.1 % (25-40); Mean Corpuscular HGB Conc 33.8 % (30-36); Mean Corpuscular Hemoglobin 30.2 PG (26-34); Mean Corpuscular Volume 89.4 fL (80-100); Monocytes Absolute Auto 1100 /uL (0-900); Monocytes Percent Auto 8.2 % (3-14); Neutrophils Absolute Auto 10400 /uL (1500-7000); Neutrophils Percent Auto 78.7 % (50-75); Platelet Count 344 X10^3/uL (150-400); Red Blood Cell Count 4.09 X10^6/uL (4.0-5.2); Red Cell Distribution Width 13.9 % (11.6-14.8); White Blood Cell Count 13.2 X10^3/uL (4.5-11.0)
[2023-12-01] MEDS: ACETAMINOPHEN 325 MG TABLET 650 MG PO (21:03)
[2023-12-01] MEDS: SODIUM CHLORIDE 0.9% 1,000 ML 1000 ML IV ×2 (21:05→23:41)
[2023-12-01 21:17] LABS: Lactate (Lactic Acid) 1.4 mmol/L (0.7-2.1)
[2023-12-01 21:18] LABS: Alanine Aminotransferase 13 IU/L (<35); Albumin Globulin Ratio 1.1 (1.0-2.8); Alkaline Phosphatase 75 U/L (38-126); Aspartate Aminotransferase 23 IU/L (14-36); BUN Creatinine Ratio 16.7 (6-22); Bilirubin Total 0.7 mg/dL (0.2-1.3); Blood Urea Nitrogen 10 mg/dL (7-17); Calcium 8.7 mg/dL (8.4-10.2); Carbon Dioxide 20 mmol/L (22-32); Chloride 104 mmol/L (98-107); Estimated Glomerular Filt Rate > 60 mL/min (>60); Globulin 3.5 g/dL (1.7-4.1); Glucose 134 mg/dL (80-110); HEMOLYSIS 22 (0-50); Lipase 99 U/L (23-300); Potassium 3.7 mmol/L (3.4-5.1); Sodium 133 mmol/L (137-145); Total Protein 7.5 g/dL (6.3-8.2)
--- NOTE | 2023-12-01 21:34 | ED.GENADULT ---
HPI - General Adult General Chief complaint: Abdominal Pain Stated complaint: Dental infection Time Seen by Provider: 12/01/23 20:40 Source: patient and family Mode of arrival: Wheelchair History of Present Illness HPI narrative: Patient is a 73-year-old female who approximately 1 month ago was diagnosed with C diff. this was after taking a course of antibiotics for a dental infection. The initial diagnosis of C diff resulted in a multiple day stay in the hospital for fluids. She completed the course of oral vancomycin. Actually went several days/week or more without any symptoms with normal stools no fevers. Approximately 2 days ago started to have loose stools which have progressively worsened until today where now she is having multiple episodes of loose stools. It is nonbloody. Is having quite a bit of abdominal cramping with the stools. Also having vomiting. Chills at home. Related Data Home Medications Medication Instructions Recorded Confirmed citalopram 20 mg tablet 20 mg PO BEDTIME 11/06/23 11/06/23 pravastatin 40 mg tablet 40 mg PO BEDTIME 11/06/23 11/06/23 Previous Rx's Medication Instructions Recorded vancomycin 125 mg capsule 125 mg PO Q6H #40 caps 11/09/23 vancomycin 125 mg capsule 125 mg PO DIRECTED #89 caps 12/02/23 vancomycin 125 mg capsule 125 mg PO DIRECTED #89 caps 12/02/23 Allergies Allergy/AdvReac Type Severity Reaction Status Date / Time clindamycin AdvReac Intermediate C. diff Verified 12/01/23 20:41 Review of Systems Review of Systems Narrative: See HPI Patient History Medical History Depression HLD (hyperlipidemia) Social History household members: spouse and family Smoking Status: Never smoker alcohol intake: never Smoking Status: Never smoker Substance Use Type: does not use Exam Initial Vital Signs Initial Vital Signs: Vital Signs Temperature 97.6 F 12/01/23 20:41 Pulse Rate 120 H 12/01/23 20:41 Respiratory Rate 17 12/01/23 20:41 Blood Pressure 116/70 12/01/23 20:41 Pulse Oximetry 93 12/01/23 20:41 Oxygen Delivery Method Room Air 12/01/23 20:41 Const General: cooperative, healthy appearing and No ill appearing Resp Effort & Inspection: normal respiratory effort Auscultation: clear to auscultation bilaterally Cardio Rate: tachycardic Rhythm: regular rhythm GI Inspection: non-distended Palpation: soft, No firm, No guarding and No rigid Neuro General: patient alert, patient awake, patient oriented x3 and moves all extremities Course Orders Ordered: ED Orders 12/01/23 20:38 Complete Blood Count AUTO DIFF Stat Comprehensive Metabolic Panel Stat Lactate (Lactic Acid) Stat Lipase Stat 12/01/23 21:50 GI Panel (Film Array) Stat Urine Microscopic Stat 12/01/23 22:13 Blood Culture Stat Discontinued Medications Acetaminophen (Acetaminophen 325 Mg Tablet) 650 mg PO NOW ONE Stop: 12/01/23 20:55 Last Admin: 12/01/23 21:03 Dose: 650 mg Documented By: TRAVIS Sodium Chloride (Normal Saline 0.9%) 1,000 mls @ 1,000 mls/hr IV BOLUS ONE Stop: 12/01/23 21:39 Last Infusion: 12/01/23 23:40 Dose: Infused Documented By: Admin: 12/01/23 21:05 Dose: 1,000 mls/hr Documented By: TRAVIS Sodium Chloride (Normal Saline 0.9%) 1,000 mls @ 1,000 mls/hr IV BOLUS ONE Stop: 12/02/23 00:23 Last Infusion: 12/02/23 01:15 Dose: Infused Documented By: Admin: 12/01/23 23:41 Dose: 1,000 mls/hr Documented By: SHALA Ondansetron HCl (Ondansetron 4 Mg/2 Ml Inj) 4 mg IV NOW ONE Stop: 12/01/23 22:17 Last Admin: 12/01/23 22:25 Dose: 4 mg Documented By: TRAVIS Vancomycin HCl (Vancomycin 125 Mg Capsule) 125 mg PO NOW ONE Stop: 12/02/23 00:34 Last Admin: 12/02/23 01:11 Dose: 125 mg Documented By: TRAVIS Vital Signs Vital signs: Vital Signs - 8 hr 12/01/23 20:41 12/01/23 20:51 12/01/23 21:00 Temperature 97.6 F Pulse Rate 120 H 113 H 104 H Respiratory Rate 17 19 Blood Pressure 116/70 Pulse Oximetry 93 94 Oxygen Delivery Method Room Air 12/01/23 21:30 12/01/23 22:03 12/01/23 22:12 Temperature Pulse Rate 106 H 103 H 100 H Respiratory Rate 22 24 Blood Pressure Pulse Oximetry 93 94 Oxygen Delivery Method 12/01/23 22:12 12/01/23 22:30 12/01/23 22:30 Temperature Pulse Rate 97 H Respiratory Rate 17 Blood Pressure 135/65 136/60 Pulse Oximetry 92 Oxygen Delivery Method 12/01/23 23:11 12/01/23 23:12 12/01/23 23:12 Temperature Pulse Rate 99 H Respiratory Rate 12 Blood Pressure 142/75 H Pulse Oximetry 96 95 Oxygen Delivery Method 12/01/23 23:30 12/01/23 23:30 12/02/23 00:10 Temperature Pulse Rate 96 H 108 H Respiratory Rate 20 22 Blood Pressure 141/69 H Pulse Oximetry 92 96 Oxygen Delivery Method 12/02/23 00:11 12/02/23 00:11 12/02/23 00:30 Temperature Pulse Rate 104 H 99 H Respiratory Rate 21 19 Blood Pressure 150/59 H Pulse Oximetry 95 97 Oxygen Delivery Method Room Air 12/02/23 00:30 12/02/23 01:11 12/02/23 01:30 Temperature Pulse Rate 129 H 104 H Respiratory Rate 36 H 26 H Blood Pressure 141/63 H Pulse Oximetry 96 97 Oxygen Delivery Method 12/02/23 01:31 12/02/23 01:31 Temperature Pulse Rate 103 H Respiratory Rate 30 H Blood Pressure 143/66 H Pulse Oximetry 98 Oxygen Delivery Method Room Air Medical Decision Making Medical Records Medical records reviewed: Yes I reviewed the patient's medical records. Lab Data Lab results reviewed: Yes I reviewed the patient's lab results. 12/01/23 20:38 12/01/23 20:38 Labs: Lab Results 12/01/23 12/01/23 Range/Units 20:38 21:50 WBC 13.2 H (4.5-11.0) X10^3/uL RBC 4.09 (4.0-5.2) X10^6/uL Hgb 12.4 (12.0-16.0) g/dL Hct 36.6 (36-46) % MCV 89.4 (80-100) fL MCH 30.2 (26-34) PG MCHC 33.8 (30-36) % RDW 13.9 (11.6-14.8) % Plt Count 344 (150-400) X10^3/uL Neut % (Auto) 78.7 H (50-75) % Lymph % (Auto) 12.1 L (25-40) % [place] % (Auto) 8.2 (3-14) % Eos % (Auto) 0.3 L (2-4) % Baso % (Auto) 0.7 (0-2) % Neut # (Auto) 80244 H (2019-0609) /uL Lymph # (Auto) 1600 (8189-6144) /uL [place] # (Auto) 1100 H (0-900) /uL Eos # (Auto) 0 (0-450) /uL Baso # (Auto) 100 (0-100) /uL Sodium 133 L (137-145) mmol/L Potassium 3.7 (3.4-5.1) mmol/L Chloride 104 (98-107) mmol/L Carbon Dioxide 20 L (22-32) mmol/L BUN 10 (7-17) mg/dL Creatinine 0.60 (0.52-1.04) mg/dL Estimated GFR > 60 (>60) mL/min BUN/Creatinine Ratio 16.7 (6-22) Glucose 134 H (80-110) mg/dL Lactate 1.4 (0.7-2.1) mmol/L Calcium 8.7 (8.4-10.2) mg/dL Total Bilirubin 0.7 (0.2-1.3) mg/dL AST 23 (14-36) IU/L ALT 13 (<35) IU/L Alkaline Phosphatase 75 (38-126) U/L Total Protein 7.5 (6.3-8.2) g/dL Albumin 4.0 (3.5-5.0) g/dL Globulin 3.5 (1.7-4.1) g/dL Albumin/Globulin Ratio 1.1 (1.0-2.8) Lipase 99 (23-300) U/L Urine RBC 1-5/hpf (0-5/HPF) Urine WBC None seen (0-5/HPF) Ur Squamous Epith Cells 0-1 /hpf (0-5/HPF) Urine Bacteria None seen (None) Ur Culture Indicated? Cult not indicated Vol Urine Centrifuged 10ml (spun) Stl C. cayetanensis PCR Not detected (Not Detect) Stool Rotavirus (PCR) Not detected (Not Detect) Stool Adenovirus (PCR) Not detected (Not Detect) Stool Astrovirus (PCR) Not detected (Not Detect) Stool Cryptosporidium PCR Not detected (Not Detect) Stl E.coli Shiga Tox PCR Not detected (Not Detect) St Sh/Enteroin Ecoli PCR Not detected (Not Detect) Stl Enterotoxigenic E PCR Not detected (Not Detect) Stool EPEC (PCR) Not detected (Not Detect) Stl E. histolytica PCR Not detected (Not Detect) Stool Giardia Lamblia PCR Not detected (Not Detect) Stool Sapovirus (PCR) Not detected (Not Detect) Stl P. shigelloides PCR Not detected (Not Detect) St Y.enterocolitica PCR Not detected (Not Detect) Stool Vibrio (PCR) Not detected (Not Detect) Stl Vibrio cholerae PCR Not detected (Not Detect) Stl Enteroaggr Ecoli PCR Not detected (Not Detect) Stl Norovirus GI/GII PCR Not detected (Not Detect) Campylobacter (PCR) Not detected (Not Detect) C. difficile Tox (PCR) Detected H (Not Detect) Salmonella (PCR) Not detected (Not Detect) Urine Dip Bedside Urine Glucose Negative Bedside Urine Bilirubin - Negative Bedside Urine Ketone - Negative Urine Specific [place] 1.020 Bedside Urine Occult Blood +/- Bedside Urine pH 6.0 Bedside Urine Protein - Negative Bedside Urine Urobilinogen - Negative Bedside Urine Nitrite - Negative Bedside Urine Leukocytes - Negative Esterase Point of care testing: Urine Dip Bedside Urine Glucose Negative Bedside Urine Bilirubin - Negative Bedside Urine Ketone - Negative Urine Specific [place] 1.020 Bedside Urine Occult Blood +/- Bedside Urine pH 6.0 Bedside Urine Protein - Negative Bedside Urine Urobilinogen - Negative Bedside Urine Nitrite - Negative Bedside Urine Leukocytes - Negative Esterase [facility] Narrative Medical decision making narrative: Patient does have leukocytosis and a left shift. The rest of her blood counts are unremarkable. Chemistries are relatively unremarkable to include kidney function. Has a relatively benign abdominal exam. Was tachycardic upon arrival however this improved with fluids. Patient did have multiple episodes of loose stools here in the ER. Stool was positive for C diff. Given the return of the diarrhea suspect that this is a recurrent infection. This would be the 1st reoccurrence. I did discuss the case with Infectious Disease at [facility] who recommended oral vancomycin and a taper dose to include 125 mg q.i.d. for the 1st 10 days, t.i.d. for 7 days, b.i.d. for 7 days, daily for 7 days, every other day for 7 days then every 3rd day for 7 days. Patient was given a dose of vancomycin here in the emergency department and tolerated without any vomiting. Discharge Plan Departure Patient Disposition: Home Clinical Impression: C. difficile colitis Instructions: DI for Antibiotic -- associated Colitis -- C difficile Activity Restrictions/Additional Instructions: Vancomycin 125 mg tablets One tablet 4 times a day for 10 days One tablet 3 times a day for 7 days One tablet 2 times a day for 7 days One tablet daily for 7 days One tablet every other day for 7 days One tablet every 3rd day for 7 days Prescriptions: New vancomycin 125 mg capsule 125 mg PO DIRECTED Qty: 89 0RF Rx Instructions: 125 mg orally as directed vancomycin 125 mg capsule 125 mg PO DIRECTED Qty: 89 0RF Rx Instructions: 1T PO QID for 10D, 1T PO TID for 7D, 1T PO BID for 7D, 1T PO QD for 7D, 1T PO every other day for 7D, 1T PO every 3rd day for 7D No Action pravastatin 40 mg tablet 40 mg PO BEDTIME citalopram 20 mg tablet 20 mg PO BEDTIME vancomycin 125 mg Capsule 125 mg PO Q6H Qty: 40 0RF Stand Alone Forms: Patient Portal/API
[2023-12-01 22:18] LABS: Bacteria Urine None Seen; Culture Indicated Urine Cult Not Indicated; RBC Urine 1-5/HPF (0-5/HPF); Squamous Epithelial Cell Urine 0-1 /HPF (0-5/HPF); Urine Volume 10mL (spun); WBC Urine None Seen (0-5/HPF)
[2023-12-01] MEDS: ONDANSETRON 4 MG/2 ML INJ IV (22:25)
[2023-12-01 23:24] LABS: Adenovirus F 40/41 Not Detected (Not Detect); Astrovirus Not Detected (Not Detect); Campylobacter Not Detected (Not Detect); Clostridium difficile toxin AB Detected (Not Detect); Cryptosporidium Not Detected (Not Detect); Cyclospora cayetanensis Not Detected (Not Detect); Entamoeba histolytica Not Detected (Not Detect); Enteroaggregative E.coli Not Detected (Not Detect); Enteropathogenic E.coli Not Detected (Not Detect); Enterotoxigenic E.coli It/st Not Detected (Not Detect); Giardia lamblia Not Detected (Not Detect); Norovirus GI/GII Not Detected (Not Detect); Plesiomonsa shigelloides Not Detected (Not Detect); Rotavirus A Not Detected (Not Detect); Salmonella Not Detected (Not Detect); Sapovirus Not Detected (Not Detect); Shiga-like toxin-prod E.coli Not Detected (Not Detect); Shigella/Enteroinvasive E.coli Not Detected (Not Detect); Vibrio Not Detected (Not Detect); Vibrio cholerae Not Detected (Not Detect); Yersinia enterocolitica Not Detected (Not Detect)
[2023-12-02 00:10] VITALS: PULSE 108; RESP 22; O2SAT 96
[2023-12-02 00:11] VITALS: BP 150/59; PULSE 104; RESP 21; O2SAT 95
[2023-12-02 00:30] VITALS: BP 141/63; PULSE 99; RESP 19; O2SAT 97
[2023-12-02 01:11] VITALS: PULSE 129; RESP 36; O2SAT 96
[2023-12-02] MEDS: VANCOMYCIN 125 MG CAPSULE PO (01:11)
[2023-12-02 01:30] VITALS: PULSE 104; RESP 26; O2SAT 97
[2023-12-02 01:31] VITALS: BP 143/66; PULSE 103; RESP 30; O2SAT 98
[2023-12-03 19:21] LABS: C difficie Toxins A and B, EIA Negative (Negative)
== END 2023-12-02 01:46 | disposition home or self-care (01) ==
PROVIDERS: Emergency Provider Emergency Medicine
DX: A04.72 Enterocolitis due to Clostridium difficile, not specified as recurrent (principal); R00.0 Tachycardia, unspecified
CPT/HCPCS: 36415; 80053; 81003; 81015; 83605; 83690; 85025; 87040; 87324; 87507; 96361; 96374; 99284; J2405